=== PATIENT | male | born 1950 | race Caucasian/White ===

== ENCOUNTER 2017-10-02 13:57 | Emergency (ER) | payer MEDICARE, MEDICAID ==
[~2017-10-02] VITALS: Ht 193 cm; Wt 121.0 kg
[~2017-10-02 13:57] MED LIST: HYDR25TA PO; LOSA100T14 PO
[2017-10-02] MEDS ORDERED: METO-539 PO (14:22)
[2017-10-02] MEDS ORDERED: AMI2 PO (14:22)
[2017-10-02] MEDS ORDERED: RIVA10TA PO (14:22)
[2017-10-02 17:17] VITALS: BP 133/79
[2017-10-02] MEDS ORDERED: TETANUS, DIPHTHERIA, PERTUSSIS VAC/PF 0.5ML (>7YR OLD) IM ONE (19:15)
== END 2017-10-02 19:49 | disposition home or self-care (01) ==
LOC: ER 15:52
DX: L03.115 Cellulitis of right lower limb (principal); I10 Essential (primary) hypertension; I48.91 Unspecified atrial fibrillation
CPT/HCPCS: 73630; 90471; 90715; 99284

== ENCOUNTER 2017-10-05 17:20 | Emergency (ER) | payer MEDICARE, MEDICAID ==
[~2017-10-05] VITALS: Ht 193 cm; Wt 118.0 kg
[~2017-10-05 17:20] MED LIST changes: +AMI2 PO; -HYDR25TA PO; -LOSA100T14 PO; +METO-539 PO; +RIVA10TA PO
[2017-10-05 17:58] VITALS: BP 137/83
== END 2017-10-05 20:30 | disposition left against medical advice (07) ==
LOC: ER 19:14
DX: Z53.21 Procedure and treatment not carried out due to patient leaving prior to being seen by health care provider (principal); I48.91 Unspecified atrial fibrillation; I10 Essential (primary) hypertension

== ENCOUNTER 2018-03-02 09:08 | Emergency (ER) | payer MEDICARE, MEDICAID ==
[~2018-03-02] VITALS: Ht 193 cm; Wt 122.0 kg
[2018-03-02 09:16] VITALS: BP 145/84
[2018-03-02] MEDS ORDERED: ACETAMINOPHEN 325MG TABLET PO ONE (12:00)
[2018-03-02] MEDS ORDERED: ACETAMINOPHEN 325MG TABLET ONE (12:31)
== END 2018-03-02 15:09 | disposition home or self-care (01) ==
LOC: ER 09:08
DX: M25.562 Pain in left knee (principal); W17.89XA Other fall from one level to another, initial encounter; Y93.89 Activity, other specified; Y92.89 Other specified places as the place of occurrence of the external cause
CPT/HCPCS: 73562; 99284

== ENCOUNTER → 2021-07-30 | Outpatient (CLI) | payer MEDICARE ==
[~2021-07-30] MED LIST changes: +ASCO-339 PO; +ASCO500C18 MT; +ATOR10TA PO; +ATOR10TA69 PO; +CHOL400D7 PO; +D3 PO; +FISH GT; +METO100T16 PO; +OMEG-31 PO; +RIVA20TA PO; +TAMS-11 PO; +ZINC50TA69 PO
== END | disposition home or self-care (01) ==
LOC: LAB 13:20
PROVIDERS: ATTEND Internal Medicine Clinical Cardiac Electrophysiology
DX: Z20.822 Contact with and (suspected) exposure to COVID-19 (principal)
CPT/HCPCS: 87426

== ENCOUNTER 2021-08-01 06:12 | Inpatient (IN) | payer MEDICARE ==
[~2021-08-01] VITALS: Ht 193 cm; Wt 133.0 kg
[2021-08-01] VITALS (17 sets, daily range): BP systolic 117–135; BP diastolic 65–96
[~2021-08-01 06:12] MED LIST changes: -ASCO-339 PO; -ASCO500C18 MT; -ATOR10TA PO; -ATOR10TA69 PO; -CHOL400D7 PO; -D3 PO; -FISH GT; -METO100T16 PO; -OMEG-31 PO; -RIVA20TA PO; -TAMS-11 PO; -ZINC50TA69 PO
[2021-08-01] MEDS ORDERED: FISH GT (07:19)
[2021-08-01] MEDS ORDERED: CHOL400D7 PO (07:19)
[2021-08-01] MEDS ORDERED: ZINC50TA69 PO ×2 (07:19→21:50)
[2021-08-01] MEDS ORDERED: ATOR10TA69 PO (07:19)
[2021-08-01] MEDS ORDERED: ASCO-339 PO (07:19)
[2021-08-01] MEDS ORDERED: TAMS-11 PO ×2 (07:19→17:24)
[2021-08-01 07:33] LABS: CHLORIDE 103 mEq/L (98-107)
[2021-08-01 07:35] LABS: BASOPHILS % 2.4 % (0.0-2.0); EOSINOPHILS % 5.4 % (0.0-5.0); HEMATOCRIT. 51.5 % (42.0-52.0); LYMPHOCYTES % 19.7 % (20.0-50.0); MEAN CORPUSCULAR HEMOGLOBIN 34.7 pg (28.0-32.0); MEAN CORPUSCULAR VOLUME 99.1 fL (80.0-94.0); NEUTROPHILS % 62.5 % (40.0-76.0); PLATELET 177 x1000/uL (130-400); RED BLOOD CELL COUNT 5.19 mill/uL (4.7-6.1); RED CELL DISTRIBUTION WIDTH 13.4 % (11.6-14.6)
[2021-08-01 07:38] LABS: INR 1.2; PROTHROMBIN TIME 12.5 sec (9.6-11.0)
[2021-08-01] MEDS ORDERED: PROPOFOL 10MG/ML 100ML 100 ML IV ONE (07:51)
[2021-08-01] MEDS ORDERED: LIDOCAINE HCL 1% 10 MG/ML 10ML VIAL ONE ×2 (08:03→08:05)
[2021-08-01] MEDS ORDERED: HEPARIN SODIUM 1,000 UNIT/1ML VIAL IV ONE ×2 (08:08→13:39)
[2021-08-01] MEDS ORDERED: ATROPINE SULFATE 1MG/10ML SYR ONE (12:44)
[2021-08-01] MEDS ORDERED: ONDANSETRON HCL 4MG/2ML INJ IV PRN ×2 (13:45→15:45)
[2021-08-01] MEDS ORDERED: LABETALOL 5MG/ML SYR 20 MG/4 ML SYRINGE IV PRN (13:45)
[2021-08-01] MEDS ORDERED: HYDROMORPHONE HCL/PF 2MG/ML CPJ IV PRN (13:45)
[2021-08-01] MEDS ORDERED: MEPERIDINE HCL/PF 25MG/ML CPJ IV PRN (13:45)
[2021-08-01] MEDS ORDERED: PROTAMINE SULFATE 10MG/ML VIAL 5ML IV ONE (14:08)
[2021-08-01] MEDS ORDERED: ATROPINE SULFATE 1MG/10ML SYR IV PRN (15:45)
[2021-08-01] MEDS ORDERED: ACETAMINOPHEN 325MG TABLET PO PRN (15:45)
[2021-08-01] MEDS ORDERED: RIVA20TA PO (17:13)
[2021-08-01] MEDS ORDERED: AMI2 PO (17:24)
[2021-08-01] MEDS ORDERED: OMEG-31 PO (17:25)
[2021-08-01] MEDS ORDERED: METO100T16 PO (17:26)
[2021-08-01] MEDS ORDERED: ATOR10TA PO (17:27)
[2021-08-01] MEDS ORDERED: RIVAROXABAN 10 MG TABLET PO SCH (21:00)
[2021-08-01] MEDS ORDERED: RIVAROXABAN 20 MG TABLET PO SCH (21:00)
[2021-08-01] MEDS ORDERED: ATORVASTATIN CALCIUM 10MG TABLET PO SCH (21:00)
[2021-08-01] MEDS: METOPROLOL TARTRATE 50MG TABLET PO SCH (21:43)
[2021-08-01] MEDS ORDERED: D3 PO (22:01)
[2021-08-01] MEDS ORDERED: ASCO500C18 MT (22:01)
[2021-08-02] VITALS (12 sets, daily range): BP systolic 112–133; BP diastolic 71–82
[2021-08-02 07:18] LABS: HEMATOCRIT. 44.4 % (42.0-52.0); HEMOGLOBIN. 15.4 g/dL (14.0-18.0); MEAN CORPUSCULAR HEMOGLOBIN 34.4 pg (28.0-32.0); MEAN CORPUSCULAR VOLUME 99.4 fL (80.0-94.0); MEAN PLATELET VOLUME 9.2 fl (7.4-10.4); PLATELET 176 x1000/uL (130-400); RED BLOOD CELL COUNT 4.46 mill/uL (4.7-6.1); RED CELL DISTRIBUTION WIDTH 13.5 % (11.6-14.6)
[2021-08-02] MEDS: METOPROLOL TARTRATE 50MG TABLET PO SCH (07:46)
[2021-08-02 07:55] LABS: CHLORIDE 106 mEq/L (98-107)
[2021-08-02] MEDS ORDERED: TAMSULOSIN HCL 0.4MG SR CAPSULE PO SCH (09:00)
[2021-08-02 14:07] LABS: PLATELET ESTIMATE NORMAL
== END 2021-08-02 14:14 | disposition home or self-care (01) | DRG 274 ==
LOC: CCL 06:12 → 3WST 16:30
PROVIDERS: ADMIT Internal Medicine Clinical Cardiac Electrophysiology; ATTEND Internal Medicine Clinical Cardiac Electrophysiology
PROC: 02573ZK Destruction of Left Atrial Appendage, Percutaneous Approach (ICD-10-PCS; principal; 2021-08-01)
PROC: 02583ZZ Destruction of Conduction Mechanism, Percutaneous Approach (ICD-10-PCS; 2021-08-01)
PROC: 4A023N8 Measurement of Cardiac Sampling and Pressure, Bilateral, Percutaneous Approach (ICD-10-PCS; 2021-08-01)
PROC: 03HY32Z Insertion of Monitoring Device into Upper Artery, Percutaneous Approach (ICD-10-PCS; 2021-08-01)
PROC: 02K83ZZ Map Conduction Mechanism, Percutaneous Approach (ICD-10-PCS; 2021-08-01)
PROC: 4A023FZ Measurement of Cardiac Rhythm, Percutaneous Approach (ICD-10-PCS; 2021-08-01)
PROC: 4A0234Z Measurement of Cardiac Electrical Activity, Percutaneous Approach (ICD-10-PCS; 2021-08-01)
PROC: 5A2204Z Restoration of Cardiac Rhythm, Single (ICD-10-PCS; 2021-08-01)
DX: I48.11 Longstanding persistent atrial fibrillation (principal); E78.5 Hyperlipidemia, unspecified; E66.9 Obesity, unspecified; E78.00 Pure hypercholesterolemia, unspecified; I10 Essential (primary) hypertension; I42.8 Other cardiomyopathies; I49.5 Sick sinus syndrome; Z79.899 Other long term (current) drug therapy; Z82.3 Family history of stroke; Z68.35 Body mass index [BMI] 35.0-35.9, adult
CPT/HCPCS: 36415; 80048; 85025; 87426; 93005; 93613; 93620; 93655; 93656; 93657; 93662; C1731; C1732; C1759; C1893; J0461; J1644; J2704; J2720; J3490